=== PATIENT | female | born 1970 | race Caucasian/White ===

== ENCOUNTER → 2020-01-20 17:36 | Outpatient (CLI) | payer BC, SELFPAY ==
--- NOTE | ~2020-01-20 | MM_ITS ---
EXAMINATION: MM screening [facility] BI w frantz HISTORY: Screening mammogram TECHNIQUE: Craniocaudal and mediolateral oblique 3-D tomosynthesis images were obtained and synthetic 2-D images were generated. CAD analysis was submitted and interpreted. COMPARISON: 02/26/2018, 03/07/2016, 01/17/2015 BREAST PARENCHYMAL COMPOSITION: The breasts are heterogeneously dense, which may obscure small masses . FINDINGS: There is no evidence of suspicious mass, calcification, or architectural distortion to sugg est malignancy in either breast. There has been no suspicious interval change. IMPRESSION: 1. No mammographic evidence of malignancy. 2. Recommend routine screening mammography in one year. BI-RADS Category 1: Negative Reviewed, dictated and finalized at location A. MASON
== END ==
PROVIDERS: Visit Provider Student in an Organized Health Care Education/Training Program
DX: Z12.31 Encounter for screening mammogram for malignant neoplasm of breast (principal)
CPT/HCPCS: 77063; 77067

== ENCOUNTER → 2021-06-27 15:17 | Outpatient (CLI) | payer BC, SELFPAY ==
--- NOTE | ~2021-06-27 | MM_ITS ---
EXAMINATION: MM screening [facility] BI w frantz HISTORY: Screening mammogram TECHNIQUE: Craniocaudal and mediolateral oblique 3-D tomosynthesis images were obtained and synthetic 2-D images were generated. CAD analysis was submitted and interpreted. COMPARISON: 01/20/2020, 02/26/2018, 03/07/2016 BREAST PARENCHYMAL COMPOSITION: The breasts are heterogeneously dense, which may obscure small masses . FINDINGS: There is no suspicious mass, calcification, or architectural distortion to suggest malignan cy in either breast. There has been no suspicious interval change. IMPRESSION: 1. No mammographic evidence of malignancy. 2. Recommend routine screening mammography in one year. BI-RADS Category 1: Negative Reviewed, dictated and finalized at location A.
== END ==
PROVIDERS: PCP Internal Medicine; Visit Provider Student in an Organized Health Care Education/Training Program
DX: Z12.31 Encounter for screening mammogram for malignant neoplasm of breast (principal)
CPT/HCPCS: 77063; 77067

== ENCOUNTER 2021-12-27 13:30 | Outpatient (RCR) | payer BC, SELFPAY ==
[2021-10-04 08:05] VITALS: BP_SYST 132
--- NOTE | 2021-10-04 09:24 | PTOPEVAL ---
PHYSICAL THERAPY INITIAL EVALUATION. Thank you for referring Cynthia Markham to [facility].? The patient is scheduled to be seen for therapy? 2x/week for 4 weeks. Please review, sign, date and return this plan of care JUANA. I agree with and certify that the following plan of care is medically necessary. Referring Physician Date Attending Provider: Jose Roberto Trotter DO *PT Outpatient Evaluation Start: 10/04/21 Evaluation Information Diagnosis R Shoulder pain Onset ~3 months Subjective Information Pt states starting in July she Query Text:As Reported By Patient/ was one day unable to reach Family her arm over her head. She states it stayed the same for about the first month. She states it has gotten progressively worse in the last 3 weeks. She states her shoulder is impacting every aspect of her lift. It has become hard to fasten her bra behind her back, she states she has been having her help her. She also reports sleeping, vacuuming, reaching across her body, or doing anything where her arm needs to be raised causes her significance pain. She reports her pain is in the front of her shoulder but she now has soreness down into her forearm . She has no pain when her arms are resting to her side. 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 Dominance Right Pain Assessment Right Shoulder(s) Reported Pain Level 0 Lowest Pain Intensity 0 Greatest Pain Intensity 8 Upper Extremity Range of Motion Scapular/ Shoulder Range of Motion Right Shoulder Flexion - Active 128 Shoulder Flexion - Passive 135 Shoulder Abduction - Active 125 Shoulder Abduction - Passive 132 Shoulder Medial Rotation - Passive 32 Shoulder Medial Rotation - Active Sacrum Shoulder Lateral Rotation - Passive 60 Shoulder Lateral Rotation - Active T2 Scapular/Shoulder Range of Motion Pain Scapular/Shoulder Range of Motion passive rotation measured with Comments shoulder in 90 deg of abduction Left Shoulder Flexion - Active 185 Shoulder Abduction - Active 180 Shoulder Medial Rotation - Active T2 S
--- NOTE | 2021-10-23 10:50 | PCPTNOTE ---
Patient canceled appointment due to being out of town.
[2021-11-01 08:02] VITALS: BP_SYST 108
--- NOTE | 2021-11-01 08:55 | PTOPPROG ---
Assessment and note entered by Denise Collins, PT, DPT Evaluation Information Assessment Status Progress Diagnosis R frozen shoulder Subjective Information Pt states overall she thinks things are improving, just slowly. She states some days she has really good days to where she thinks it is getting better , then the next day it will get worse without a cause. Pt states she has started to get throbbing sensations down her forearm, and some day it hurts at all. Pt reports she has not been able to sleep well d/t her shoulder pain. Assessment PT Clinical Summary Cynthia presents to therapy today for her progress report following 6 visits of therapy to treat her R frozen shoulder. She reports good days and bad days, she states today is a bad day. Today she demonstrates decreased active and passive ROM compared to the initial evaluation. After manual therapy she demonstrates improved passive ROM that is greater than the initial evaluation. Continuation of skilled physical therapy services are indicated to progress ROM, to manage pain, to improve scapular mobility, to promote unlimited functional mobility, and to return to baseline. Plan of Care Interventions Electrical Stimulation,Manual Therapy,Neuro Re- education,Patient/Caregiver Educati,Therapeutic Activities,Therapeutic Exercise PT Services Indicated Yes Treatment Frequency and 1-2x/wk for 4 wks Duration These treatments will address the objective and functional deficits as defined above. The patient will be advanced safely and appropriately in order for the patient to progress towards his/her prior level of function. Additional exercises will be introduced and as well as a comprehensive home exercise program upon discharge, if needed, ?to ensure carryover of functional gains achieved in the clinic. This treatment plan has been reviewed and agreement upon by the patient.
[2021-11-27 09:30] VITALS: BP_SYST 132
--- NOTE | 2021-11-27 10:23 | PTOPPROG ---
Assessment and note entered by Denise Collins, PT, DPT Evaluation Information Assessment Status Progress Diagnosis R frozen shoulder Subjective Information Pt states she feels her pain has definitely progressed. She states she can sleep through the night now. She followed up with her orthopedic and discussed a few different plans if therapy stops working. Assessment PT Clinical Summary Annette presents to therapy today for her progress report following 12 visits of skilled therapy to treat her diagnosis of R frozen shoulder. Today she continues to demonstrates good strength blaine. She has progressed her active and passive flexion, abduction, and rotation since her last visit. She now has active (passive) flexion to 125(140) deg and active (passive) abduction to 122 (132) deg. Continuation of skilled physical therapy services are indicated to continue progressing shoulder ROM and to progress towards baseline function. Plan of Care Interventions Electrical Stimulation,Manual Therapy,Neuro Re- education,Patient/Caregiver Educati,Therapeutic Activities,Therapeutic Exercise PT Services Indicated Yes Treatment Frequency and 1x/wk for 4 wks Duration These treatments will address the objective and functional deficits as defined above. The patient will be advanced safely and appropriately in order for the patient to progress towards his/her prior level of function. Additional exercises will be introduced and as well as a comprehensive home exercise program upon discharge, if needed, ?to ensure carryover of functional gains achieved in the clinic. This treatment plan has been reviewed and agreement upon by the patient.
[2021-12-27 13:33] VITALS: BP_SYST 165
--- NOTE | 2021-12-27 14:19 | PTOPDC ---
Assessment and note entered by Denise Collins, PT, DPT Evaluation Information Assessment Status Discharge Diagnosis R frozen shoulder Subjective Information Pt reports she followed up with ortho and they were pleased with her progress. Pt states she has been traveling a lot for work and her participation with her exercises in less when she is not home. She states her biggest complaint is still not having the motion to fasten her bra from behind her back. Reported Pain Level Pain Score 0: Self Report Assessment PT Clinical Summary Cynthia Irizarry presents to therapy today for her progress report following 16 visits of skilled therapy to treat her diagnosis of R shoulder pain. Today she demonstrates near equal active and passive ROM when compared to her uninvolved side, R active flexion to 155 and R active abduction to 160 deg. She demonstrates int and ext rot that is WFL. She reports no pain with rest or with functional movements. She has met all of her therapy goals aside from active int rot. She will be discharged from skilled therapy at this time with instructions to continue her HEP upon discharge and to follow up with referring provider if symptoms reoccur. Plan of Care PT Services Indicated Yes Treatment Frequency and to be discharged Duration
== END 2022-01-01 13:13 | disposition home or self-care (01) ==
LOC: ANHGOSHPT 13:30
PROVIDERS: PCP Internal Medicine; Visit Provider Internal Medicine
DX: M25.511 Pain in right shoulder (principal)
CPT/HCPCS: 97035; 97110; 97112; 97140; 97161

== ENCOUNTER → 2022-09-05 15:06 | Outpatient (CLI) | payer BC, SELFPAY ==
--- NOTE | ~2022-09-05 | MM_ITS ---
EXAMINATION: MM screening [facility] BI w farntz HISTORY: Screening mammogram TECHNIQUE: Craniocaudal and mediolateral oblique 3-D tomosynthesis images were obtained and synthetic 2-D images were generated. CAD analysis was submitted and interpreted. COMPARISON: 06/27/2021, 01/20/2020, 02/26/2018 BREAST PARENCHYMAL COMPOSITION: The breasts are heterogeneously dense, which may obscure small masses . FINDINGS: No suspicious mass, calcification, or architectural distortion are identified in either mary ast to suggest malignancy. There has been no suspicious interval change. IMPRESSION: 1. No mammographic evidence of malignancy. 2. Recommend routine screening mammography in one year. BI-RADS Category 1: Negative Reviewed, dictated and finalized at location A.
== END ==
PROVIDERS: PCP Obstetrics & Gynecology; Visit Provider Obstetrics & Gynecology
DX: Z12.31 Encounter for screening mammogram for malignant neoplasm of breast (principal)
CPT/HCPCS: 77063; 77067

== ENCOUNTER 2022-11-17 00:54 | Day surgery (SDC) | payer BC, SELFPAY ==
[2022-11-05 14:11] VITALS: BMI 19.6
--- NOTE | 2022-11-15 09:14 | PM.HPGS ---
History of Present Illness History of Present Illness Consent: Risks, benefits, and alternatives have been discussed and questions answered. Patient agrees to proceed with procedure. Chief complaint: neoplasm screening Narrative: Cynthia Markham is a 52 year old female Referred for colon cancer screening. Review of Systems Review of Systems: All systems reviewed & are unremarkable except as noted in HPI and below PMFSH Past Medical History Medical History Chronic sinusitis Vaginal delivery x 2 Surgical History Surgical History H/O sinus surgery (~2019) [place] teeth removed Family History Family History Mother Hypertension Family history of blood dyscrasia Family history of cardiac disorder Family history of pulmonary embolism Social History Social History Smoking status: Never smoker Second hand tobacco smoke exposure: No Alcohol intake: current Drinks per week: 5 Alcohol use details: occasionally Substance use: never Substance use type: does not use Lack of Transportation: No Lack of Food: Never True Current Housing: I Have Housing Concerned About Future Housing: No Difficulty Paying Gas/Electric Bills: No Difficulty Paying for Meds: No Currently Unemployed: No Education: Bachelor's Degree Difficulty w/ Childcare or Family Care: No Living arrangements: with family Spiritual care concerns: No Meds Home Medications and Allergies Home Medications Medication Instructions Recorded Confirmed Type vitamin B comp and C no.3 15 mg-10 1 cap PO DAILY 08/02/20 11/05/22 History mg-50 mg-5 mg-300 mg capsule (B Complex Plus Vitamin C) fluticasone propionate 110 1 puff inhalation PRN PRN 07/25/22 11/05/22 History mcg/actuation HFA aerosol inhaler Shortness Of Breath (Flovent HFA) fluticasone propionate 93 1 spray intranasal Q12H #16 mL 07/25/22 11/05/22 Rx mcg/actuation breath activated aerosol (Xhance) zolpidem 5 mg tablet (Ambien) 5 mg PO ONCE PRN insomnia #30 tabs 08/29/22 11/05/22 Rx multivit with minerals-iron 18 1 tablet PO DAILY 11/05/22 11/05/22 History mg-folic ac 400 mcg-vit K 25 mcg tablet (Adults Multivitamin) Allergies Allergy/AdvReac Type Severity Reaction Status Date / Time Crab meat Allergy Unknown Unknown Uncoded 11/17/22 07:27 NKDA Allergy Unknown Unknown Uncoded 11/17/22 07:27 Exam Const: General: alert Orientation/consciousness: patient oriented x3 Resp: Auscultation: clear to auscultation bilaterally Cardio: Rhythm: regular rhythm GI: GI Palp: Yes Soft to palpation and No Tenderness to palpation present (GI) Neuro: General: patient oriented x3 Assessment and Plan Assessment and plan (1) Screening for colon cancer: Code(s): Z12.11 - Encounter for screening for malignant neoplasm of colon Status: Acute Assessment and Plan: Colonoscopy with possible biopsy or polypectomy or cautery or injection of substances.
[2022-11-17 07:28] VITALS: BP 105/75; PULSE 72; RESP 18; TEMP 36.6; O2SAT 100
[2022-11-17] MEDS: LACTATED RINGERS 1,000 ML 150 ML IV CONT (07:39)
--- NOTE | 2022-11-17 07:51 | WPDANESEPPF ---
Anes - Initial Pre Proc Eval Procedure: Operation Date: 11/17/22 08:30 Proposed Procedures p Screening Colonoscopy - Aníbal Stephen MD Date/Time: 11/17/22 07:51 Surgeon: Aníbal Stephen MD Pre Op Diagnosis: neoplasm screening Patient Data Age: 52 Gender: F Height: 1.7 m Weight: 58.4 kg Last Vital Signs Temp 97.8 F 11/17/22 07:28 Pulse 72 11/17/22 07:28 Resp 18 11/17/22 07:28 BP 105/75 11/17/22 07:28 Pulse Ox 100 11/17/22 07:28 O2 Del Method Room Air 11/17/22 07:28 Allergies Allergy/AdvReac Type Severity Reaction Status Date / Time Crab meat Allergy Unknown Unknown Uncoded 11/17/22 07:27 NKDA Allergy Unknown Unknown Uncoded 11/17/22 07:27 Home Medications Medication Instructions Recorded Confirmed Type vitamin B comp and C no.3 15 mg-10 1 cap PO DAILY 08/02/20 11/05/22 History mg-50 mg-5 mg-300 mg capsule (B Complex Plus Vitamin C) fluticasone propionate 110 1 puff inhalation PRN PRN 07/25/22 11/05/22 History mcg/actuation HFA aerosol inhaler Shortness Of Breath (Flovent HFA) fluticasone propionate 93 1 spray intranasal Q12H #16 mL 07/25/22 11/05/22 Rx mcg/actuation breath activated aerosol (Xhance) zolpidem 5 mg tablet (Ambien) 5 mg PO ONCE PRN insomnia #30 tabs 08/29/22 11/05/22 Rx multivit with minerals-iron 18 1 tablet PO DAILY 11/05/22 11/05/22 History mg-folic ac 400 mcg-vit K 25 mcg tablet (Adults Multivitamin) Patient hx anesthesia problems: none Family hx anesthesia problems: none Results Review: All pre-operative results and documents have been reviewed as part of the pre-operative evaluation. [facility] Past Medical History Medical History Chronic sinusitis Vaginal delivery x 2 Surgical History Surgical History H/O sinus surgery (~2019) [place] teeth removed Family History Family History Mother Hypertension Family history of blood dyscrasia Family history of cardiac disorder Family history of pulmonary embolism Social History Social History Smoking status: Never smoker Second hand tobacco smoke exposure: No Alcohol intake: current Drinks per week: 5 Alcohol use details: occasionally Substance use: never Substance use type: does not use Lack of Transportation: No Lack of Food: Never True Current Housing: I Have Housing Concerned About Future Housing: No Difficulty Paying Gas/Electric Bills: No Difficulty Paying for Meds: No Currently Unemployed: No Education: Bachelor's Degree Difficulty w/ Childcare or Family Care: No Living arrangements: with family Spiritual care concerns: No Anes - Eval Final PreProcedure Day of Procedure 11/17/22 07:51 Patient weight: normal Heart: regular rate and rhythm Lungs: clear to auscultation Airway: Mallampati scale class II Neurological: alert and oriented Last oral intake: >/= 8 hours ASA classification: I Emergent: no Anesthetic plan: proceed Anesthesia type and monitoring: general GIVS and standard monitoring Results Review: All pre-operative results and documents have been reviewed as part of the pre-operative evaluation. Informed Consent: The patient's anesthetic plan and its attendant risks and benefits were discussed with the patient/family/POA. Questions were solicited and answers provided to the satisfaction of the patient/family/POA.
[2022-11-17] MEDS: SIMETHICONE ORAL SUSPENSION 20 MG/0.3 ML 30 ML BOTTLE 0.6 ML IRRIGATION (08:07)
--- NOTE | 2022-11-17 08:23 | SUR.OPER ---
Transverse colon polypectomy x2 via hot snare. Only [address] Stephen aware.
[2022-11-17 08:27] VITALS: BP 100/67; PULSE 71; RESP 18; O2SAT 100
[2022-11-17 08:37] VITALS: BP 116/77; PULSE 75; RESP 18; O2SAT 100
[2022-11-17 08:47] VITALS: BP 117/85; PULSE 66; RESP 15; O2SAT 100
== END 2022-11-17 08:55 | disposition home or self-care (01) ==
PROVIDERS: PCP Nurse Practitioner; Visit Provider Internal Medicine Gastroenterology
PROC: 0DJD8ZZ Inspection of Lower Intestinal Tract, Via Natural or Artificial Opening Endoscopic (ICD-10-PCS; CPT 45378; principal; 2022-11-17 08:30)
DX: Z12.11 Encounter for screening for malignant neoplasm of colon (principal); K63.5 Polyp of colon; D12.5 Benign neoplasm of sigmoid colon; K64.8 Other hemorrhoids
CPT/HCPCS: 45385; 45381; 88305; J2001; J2704; J7120

== ENCOUNTER 2023-11-16 14:57 | Outpatient (CLI) | payer BC, SELFPAY ==
--- NOTE | ~2023-11-16 | XR_ITS ---
XR shoulder LT min 2V Ordering provider: Michael Diallo MD History: . M25.512 - Pain in left shoulder since July . Comparison: None. FINDINGS: BONES: No acute fracture or dislocation. JOINT SPACES: The acromioclavicular joint is normal. The glenohumeral joint is normal. SOFT TISSUES: Normal. IMPRESSION: No acute osseous abnormality left shoulder. Reviewed, dictated and finalized at location A.
== END 2023-11-16 14:58 | disposition home or self-care (01) ==
LOC: ANHIMG 14:59
PROVIDERS: PCP Nurse Practitioner; Visit Provider Orthopaedic Surgery
DX: M25.512 Pain in left shoulder (principal)
CPT/HCPCS: 73030

== ENCOUNTER 2024-06-01 11:50 | Outpatient (CLI) | payer BC, SELFPAY ==
--- NOTE | ~2024-06-01 | MM_ITS ---
EXAMINATION: MM screening [facility] BI w frantz HISTORY: Screening TECHNIQUE: Craniocaudal and mediolateral oblique 3-D tomosynthesis images were obtained and synthetic 2-D images were generated. CAD analysis was submitted and interpreted. COMPARISON: Comparison to multiple prior studies sequentially, with oldest reviewed study dated 10/2014. BREAST PARENCHYMAL COMPOSITION: Dense: The breasts are heterogeneously dense, which may obscure small masses FINDINGS: There is no evidence of suspicious mass, calcification, or architectural distortion to sugg est malignancy in either breast. There has been no suspicious interval change. IMPRESSION: 1. No mammographic evidence of malignancy. 2. Recommend routine screening mammography in one year. BI-RADS Category 1: Negative Reviewed, dictated and finalized at location A.
== END 2024-06-01 11:51 | disposition home or self-care (01) ==
LOC: MICIMG 11:51
PROVIDERS: PCP Internal Medicine; Visit Provider Nurse Practitioner Family
DX: Z12.31 Encounter for screening mammogram for malignant neoplasm of breast (principal)
CPT/HCPCS: 77063; 77067